=== PATIENT | male | born 1960 | race Hispanic/Latino ===

== ENCOUNTER 2021-03-03 07:20 | Day surgery (SDC) | payer MEDICARE ==
[~2021-03-03] VITALS: Ht 162.6 cm; Wt 77.1 kg
[2021-03-03] VITALS (7 sets, daily range): BP systolic 103–123; BP diastolic 47–58
[~2021-03-03 07:20] MED LIST: 0.9%NACL 1000ML 1,000 ML IV ONE
[2021-03-03] MEDS ORDERED: LINA5TAB PO (09:10)
[2021-03-03] MEDS ORDERED: ATOR40TA69 PO (09:10)
[2021-03-03] MEDS ORDERED: METO-408 PO (09:10)
[2021-03-03] MEDS ORDERED: ASPI-1443 PO (09:10)
[2021-03-03] MEDS ORDERED: FOLI0.8T22 PO (09:10)
[2021-03-03] MEDS ORDERED: AURYXIA PO (09:10)
[2021-03-03] MEDS ORDERED: CLOP75TA32 PO (09:10)
[2021-03-03] MEDS ORDERED: PROPOFOL 10 MG/ML 20ML VIAL IV ONE ×2 (10:55)
[2021-03-03] MEDS ORDERED: 0.9%NACL 10ML VIAL ONE (11:12)
== END 2021-03-03 12:08 | disposition home or self-care (01) ==
LOC: DAH 07:20 → ENDO 07:20
PROVIDERS: ATTEND Internal Medicine Gastroenterology
DX: R19.5 Other fecal abnormalities (principal); Z20.822 Contact with and (suspected) exposure to COVID-19; K52.9 Noninfective gastroenteritis and colitis, unspecified; K57.30 Diverticulosis of large intestine without perforation or abscess without bleeding; K64.0 First degree hemorrhoids; K63.3 Ulcer of intestine; E11.22 Type 2 diabetes mellitus with diabetic chronic kidney disease; I12.0 Hypertensive chronic kidney disease with stage 5 chronic kidney disease or end stage renal disease; N18.6 End stage renal disease; D64.9 Anemia, unspecified; I25.10 Atherosclerotic heart disease of native coronary artery without angina pectoris; Z99.2 Dependence on renal dialysis; Z98.84 Bariatric surgery status; Z98.49 Cataract extraction status, unspecified eye; Z95.5 Presence of coronary angioplasty implant and graft; Z79.02 Long term (current) use of antithrombotics/antiplatelets; Z79.82 Long term (current) use of aspirin; Z79.899 Other long term (current) drug therapy
CPT/HCPCS: 45380; 82948 ×3; 87426; 93005; A4215 ×2; A4221; A4222; A4223; A4606; A4620; A4657; A4663; J2704 ×2; J7030

== ENCOUNTER 2022-02-05 13:00 | Inpatient (IN) | payer MEDICARE ==
[~2022-02-05] VITALS: Ht 162.6 cm; Wt 88.0 kg
[2022-02-05 11:17] LABS: BASOPHILS % (AUTO) 0.8 % (0.0-5.0); EOSINOPHILS % (AUTO) 2.2 % (0.0-8.0); HEMATOCRIT 54.3 % (42-54); MEAN CORPUSCULAR HGB CONC 31.7 g/dL (32.0-36.0); MEAN CORPUSCULAR VOLUME 91.4 fL (79-99); MONOCYTES % (AUTO) 10.3 % (3.0-13.0); NEUTROPHILS % (AUTO) 67.4 % (40.0-77.0); PLATELET COUNT (AUTO) 149 K/uL (130-400); RED BLOOD CELL COUNT(AUTO) 5.94 MIL/uL (4.50-6.20); RED CELL DISTRIBUTION WIDTH 15.3 % (11.0-15.5); WHITE BLOOD COUNT (AUTO) 6.5 K/uL (4.8-10.8)
[2022-02-05 12:14] LABS: CREATININE 5.7 mg/dL (0.5-1.5); POTASSIUM 3.7 mmol/L (3.5-5.1)
[~2022-02-05 13:00] MED LIST changes: -0.9%NACL 1000ML 1,000 ML IV ONE; +ATOR40TA69 PO; +AURYXIA PO; +LINA5TAB PO; +METO-408 PO
[2022-02-05 13:26] VITALS: BP 109/51
[2022-02-05] MEDS ORDERED: CLOP75TA14 PO (14:14)
[2022-02-05] MEDS ORDERED: INSU100C6 SQ (14:14)
[2022-02-08] VITALS (38 sets, daily range): BP systolic 88–152; BP diastolic 40–79
[2022-02-08] MEDS ORDERED: 0.9%NACL 1000ML 1,000 ML IV SCH (08:00)
[2022-02-08] MEDS ORDERED: CEFAZOLIN SODIUM 1 GM VIAL IVP ONE (08:00)
[2022-02-08] MEDS ORDERED: BUPIVACAINE/PF 0.5% 30ML VIAL ONE (10:29)
[2022-02-08] MEDS ORDERED: CEFAZOLIN SODIUM 2 GM VIAL IV ONE (10:57)
[2022-02-08] MEDS ORDERED: MIDAZOLAM HCL 1 MG/ML 2ML VIAL ONE (11:00)
[2022-02-08] MEDS ORDERED: PROPOFOL 10 MG/ML 20ML VIAL IV ONE (11:02)
[2022-02-08] MEDS ORDERED: ROCURONIUM 10MG/1ML SYR 10 MG/ML ML ONE (11:02)
[2022-02-08] MEDS ORDERED: GLYCOPYRROLATE 1 MG/5 ML SYRINGE ONE (11:02)
[2022-02-08] MEDS ORDERED: FENTANYL CITRATE PF 50 MCG/1 ML 2ML VIAL ONE ×2 (11:26→13:04)
[2022-02-08] MEDS ORDERED: HYDROMORPHONE 1 MG INJ ONE (12:20)
[2022-02-08] MEDS ORDERED: NEOSTIGMINE 5MG/5ML SYR IV ONE (12:24)
[2022-02-08] MEDS ORDERED: ONDANSETRON 4MG INJ ONE (12:51)
[2022-02-08] MEDS ORDERED: ONDANSETRON 4MG INJ IVP PRN (15:00)
[2022-02-08] MEDS ORDERED: MORPHINE 4 MG SYG IVP PRN (15:00)
[2022-02-08] MEDS: LACTATED RINGERS 1000ML 1,000 ML IV SCH ×2 (15:00→23:00)
[2022-02-08] MEDS ORDERED: HYDROMORPHONE 0.5 MG SYG (0.5MG/0.5ML) IVP ONE (19:00)
[2022-02-08] MEDS ORDERED: HYDROMORPHONE 1 MG INJ IVP PRN (19:00)
[2022-02-08] MEDS: CEFAZOLIN SODIUM 1 GM VIAL IVP SCH (19:05)
[2022-02-08] MEDS: AURYXIA 210 MG PO SCH (20:31)
[2022-02-08] MEDS: ATORVASTATIN 40 MG TABLET PO SCH (20:31)
[2022-02-09] VITALS (7 sets, daily range): BP systolic 86–117; BP diastolic 32–68
[2022-02-09] MEDS: CEFAZOLIN SODIUM 1 GM VIAL IVP SCH ×3 (01:29→17:16)
[2022-02-09 05:17] LABS: HEMATOCRIT 35.7 % (42-54); MEAN CORPUSCULAR HEMOGLOBIN 29.5 pg (27.0-33.0); MEAN CORPUSCULAR HGB CONC 31.7 g/dL (32.0-36.0); MEAN CORPUSCULAR VOLUME 93.2 fL (79-99); PLATELET COUNT (AUTO) 133 K/uL (130-400); RED BLOOD CELL COUNT(AUTO) 3.83 MIL/uL (4.50-6.20); WHITE BLOOD COUNT (AUTO) 7.1 K/uL (4.8-10.8)
[2022-02-09 05:56] LABS: ALBUMIN 2.3 g/dL (3.5-5.0); CREATININE 7.1 mg/dL (0.5-1.5); PHOSPHORUS 6.1 mg/dL (2.5-4.9); POTASSIUM 4.7 mmol/L (3.5-5.1); TOTAL PROTEIN, SERUM 5.6 g/dL (6.0-8.3)
[2022-02-09] MEDS: LACTATED RINGERS 1000ML 1,000 ML IV SCH ×2 (07:00→15:00)
[2022-02-09 07:29] LABS: LYMPHOCYTES % (MANUAL) 8 % (22-44); MONOCYTES % (MANUAL) 9 % (2-9); SEGMENTED NEUTROPHILS % 83 % (40-70)
[2022-02-09 07:30] LABS: MAN.DIFF COMMENT-IMPRESSION MANUAL DIFFERENTIAL; PLATELET MORPHOLOGY COMMENT SLIGHTLY DECREASED
[2022-02-09] MEDS: AURYXIA 210 MG PO SCH ×2 (08:28→20:27)
[2022-02-09] MEDS: HYDROMORPHONE 0.5 MG SYG (0.5MG/0.5ML) IVP PRN ×2 (08:31→15:57)
[2022-02-09] MEDS: LINAGLIPTIN 5 MG TABLET PO SCH (08:31)
[2022-02-09] MEDS ORDERED: METOPROLOL SUCCINATE 25 MG TAB.SR.24H PO SCH (09:00)
[2022-02-09 12:43] LABS: MAGNESIUM 2.8 mg/dL (1.80-2.40)
[2022-02-09] MEDS: ATORVASTATIN 40 MG TABLET PO SCH (20:30)
[2022-02-09 21:10] LABS: HEPATITIS B SURFACE ANTIGEN Non-Reactive (Nonreactive)
[2022-02-09 21:11] LABS: HEPATITIS A IGM ANTIBODY Non-Reactive (Nonreactive); HEPATITIS B CORE IGM ANTIBODY Non-Reactive (Negative); HEPATITIS C ANTIBODY Non-Reactive (Nonreactive)
[2022-02-10] VITALS (23 sets, daily range): BP systolic 80–149; BP diastolic 32–90
[2022-02-10] MEDS: CEFAZOLIN SODIUM 1 GM VIAL IVP SCH ×3 (01:38→18:16)
[2022-02-10] MEDS: HYDROMORPHONE 0.5 MG SYG (0.5MG/0.5ML) IVP PRN (03:58)
[2022-02-10 04:25] LABS: HEMATOCRIT 36.2 % (42-54); MEAN CORPUSCULAR HEMOGLOBIN 29.6 pg (27.0-33.0); MEAN CORPUSCULAR HGB CONC 32.6 g/dL (32.0-36.0); PLATELET COUNT (AUTO) 140 K/uL (130-400); RED BLOOD CELL COUNT(AUTO) 3.98 MIL/uL (4.50-6.20); RED CELL DISTRIBUTION WIDTH 14.8 % (11.0-15.5)
[2022-02-10 04:43] LABS: ALBUMIN 2.6 g/dL (3.5-5.0); ASPARTATE AMINOTRANSFERASE 16 U/L (10-37); CARBON DIOXIDE 29 mmol/L (21-32); CHLORIDE 94 mmol/L (101-111); GLOMERULAR FILTR. RATE CALC 6 mL/min (>60); GLUCOSE,RANDOM 114 mg/dL (70-105); POTASSIUM 4.8 mmol/L (3.5-5.1); SODIUM SERUM 137 mmol/L (136-145); TOTAL PROTEIN, SERUM 6.7 g/dL (6.0-8.3); UREA NITROGEN, BLOOD 62 mg/dL (7-18)
[2022-02-10 05:08] LABS: BAND NEUTROPHILS % (MANUAL) 2 % (0-2); EOSINOPHILS % (MANUAL) 1 % (1-6); LYMPHOCYTES % (MANUAL) 10 % (22-44); MAN.DIFF COMMENT-IMPRESSION MANUAL DIFFERENTIAL; MONOCYTES % (MANUAL) 9 % (2-9); PLATELET MORPHOLOGY COMMENT ADEQUATE; SEGMENTED NEUTROPHILS % 78 % (40-70)
[2022-02-10 05:28] LABS: ALANINE AMINOTRANSFERASE < 6 U/L (12-78); CREATININE 10.1 mg/dL (0.5-1.5)
[2022-02-10] MEDS: AURYXIA 210 MG PO SCH ×2 (08:48→21:00)
[2022-02-10] MEDS: LINAGLIPTIN 5 MG TABLET PO SCH (08:57)
[2022-02-10] MEDS: SEVELAMER HCL 800 MG TABLET PO SCH (18:14)
[2022-02-10] MEDS ORDERED: 0.9% NACL 500ML IV.SOLN 500 ML IV ONE (20:26)
[2022-02-10] MEDS: ATORVASTATIN 40 MG TABLET PO SCH (20:28)
[2022-02-10] MEDS ORDERED: 0.9% NACL 500ML IV.SOLN 500 ML IV SCH (20:30)
[2022-02-10] MEDS: INSULIN HUMULIN R 100 UNIT/ML 3ML SQ SCH (21:00)
[2022-02-11] VITALS: BP 108/55
[2022-02-11] MEDS: CEFAZOLIN SODIUM 1 GM VIAL IVP SCH ×2 (02:55→11:32)
[2022-02-11 04:00] VITALS: BP 118/61
[2022-02-11 04:34] LABS: HEMATOCRIT 34.4 % (42-54); MEAN CORPUSCULAR HEMOGLOBIN 29.4 pg (27.0-33.0); MEAN CORPUSCULAR HGB CONC 32.6 g/dL (32.0-36.0); MEAN CORPUSCULAR VOLUME 90.3 fL (79-99); PLATELET COUNT (AUTO) 130 K/uL (130-400); RED BLOOD CELL COUNT(AUTO) 3.81 MIL/uL (4.50-6.20); RED CELL DISTRIBUTION WIDTH 14.5 % (11.0-15.5); WHITE BLOOD COUNT (AUTO) 5.8 K/uL (4.8-10.8)
[2022-02-11 04:53] LABS: CREATININE 7.8 mg/dL (0.5-1.5); PHOSPHORUS 6.2 mg/dL (2.5-4.9)
[2022-02-11 04:57] LABS: EOSINOPHILS % (MANUAL) 6 % (1-6); LYMPHOCYTES % (MANUAL) 18 % (22-44); MAN.DIFF COMMENT-IMPRESSION MANUAL DIFFERENTIAL; MONOCYTES % (MANUAL) 2 % (2-9); PLATELET MORPHOLOGY COMMENT ADEQUATE; SEGMENTED NEUTROPHILS % 74 % (40-70)
[2022-02-11] MEDS: INSULIN HUMULIN R 100 UNIT/ML 3ML SQ SCH ×2 (06:20→11:30)
[2022-02-11 08:00] VITALS: BP 141/65
[2022-02-11] MEDS: LINAGLIPTIN 5 MG TABLET PO SCH (08:53)
[2022-02-11] MEDS: AURYXIA 210 MG PO SCH (08:54)
[2022-02-11] MEDS: SEVELAMER HCL 800 MG TABLET PO SCH ×2 (08:54→11:33)
[2022-02-11] MEDS ORDERED: ASPIRIN 81MG CHEW TAB PO SCH (09:00)
[2022-02-11 11:23] VITALS: BP 122/74
== END 2022-02-11 13:15 | disposition home or self-care (01) | DRG 353 ==
LOC: DAHIP 02-08 08:17 → 4BH 02-08 13:39
PROVIDERS: ADMIT Surgery; ATTEND Surgery
PROC: 5A1D70Z Performance of Urinary Filtration, Intermittent, Less than 6 Hours Per Day (ICD-10-PCS; 2022-02-08)
PROC: 0WUF0JZ Supplement Abdominal Wall with Synthetic Substitute, Open Approach (ICD-10-PCS; principal; 2022-02-08 11:26)
PROC: 5A1D70Z Performance of Urinary Filtration, Intermittent, Less than 6 Hours Per Day (ICD-10-PCS; 2022-02-10)
DX: K43.2 Incisional hernia without obstruction or gangrene (principal); N18.6 End stage renal disease; I12.0 Hypertensive chronic kidney disease with stage 5 chronic kidney disease or end stage renal disease; Z20.822 Contact with and (suspected) exposure to COVID-19; E11.22 Type 2 diabetes mellitus with diabetic chronic kidney disease; E11.51 Type 2 diabetes mellitus with diabetic peripheral angiopathy without gangrene; E78.5 Hyperlipidemia, unspecified; E87.70 Fluid overload, unspecified; D64.9 Anemia, unspecified; I25.10 Atherosclerotic heart disease of native coronary artery without angina pectoris; K66.0 Peritoneal adhesions (postprocedural) (postinfection); Z87.891 Personal history of nicotine dependence; Z95.5 Presence of coronary angioplasty implant and graft; Z98.84 Bariatric surgery status; Z99.2 Dependence on renal dialysis
CPT/HCPCS: 36415; 80048; 80053; 80074; 82948; 83735; 84100; 84132; 85025; 87426; 90935; 97039; A4344; G0378; J0690; J1170; J2250; J2270; J2405; J2704; J2710; J3010; J3490; J7030; J7040; J7120

== ENCOUNTER 2023-12-07 19:59 | Inpatient (IN) | payer MEDICARE ==
[~2023-12-07] VITALS: Ht 162.6 cm; Wt 70.2 kg
[~2023-12-07 19:59] MED LIST changes: +INSU100C6 SQ; +ROCURONIUM BROMIDE 10MG/1ML 5ML VL IV ONE
[2023-12-07 20:30] LABS: BASOPHILS # (AUTO) 0.01 K/uL (0.00-0.20); BASOPHILS % (AUTO) 0.2 % (0.0-5.0); EOSINOPHILS # (AUTO) 0.05 K/uL (0.00-0.70); EOSINOPHILS % (AUTO) 0.9 % (0.0-8.0); HEMATOCRIT 22.7 % (42-54); IMMATURE GRANULOCYTE ABSOLUTE 0.09 K/uL (0-1); LYMPHOCYTES # (AUTO) 0.7 K/uL (1.0-4.8); LYMPHOCYTES % (AUTO) 13.7 % (21.0-51.0); MEAN CORPUSCULAR HEMOGLOBIN 28.7 pg (27.0-33.0); MEAN CORPUSCULAR HGB CONC 30.8 g/dL (32.0-36.0); MONOCYTES # (AUTO) 0.5 K/uL (0.1-1.0); MONOCYTES % (AUTO) 9.2 % (3.0-13.0); NEUTROPHILS % (AUTO) 74.3 % (40.0-77.0); PLATELET COUNT (AUTO) 175 K/uL (130-400); RED BLOOD CELL COUNT(AUTO) 2.44 MIL/uL (4.50-6.20); RED CELL DISTRIBUTION WIDTH 13.9 % (11.0-15.5); WHITE BLOOD COUNT (AUTO) 5.4 K/uL (4.8-10.8)
[2023-12-07] MEDS ORDERED: CEFTRIAXONE 1G VIAL 1 GM in 0.9%NACL 50ML 50 ML IV ONE (20:30)
[2023-12-07] MEDS: ONDANSETRON 4MG INJ IVP ONE (20:36)
[2023-12-07] MEDS: PANTOPRAZOLE 40 MG/VIAL IVP ONE (20:36)
[2023-12-07] MEDS: CEFTRIAXONE 1G VIAL IVPB ONE (20:36)
[2023-12-07 20:44] LABS: INR 1.04 (0.85-1.15); PROTHROMBIN TIME 12.2 SEC (9.6-11.6)
[2023-12-07 20:45] LABS: ALBUMIN 2.8 g/dL (3.5-5.0); BILIRUBIN,TOTAL 0.3 mg/dL (0.2-1.0); PARTIAL THROMBOPLASTIN TIME 23.3 SEC (26.3-35.5); TOTAL PROTEIN, SERUM 5.4 g/dL (6.0-8.3)
[2023-12-07 20:48] LABS: POTASSIUM 6.5 mmol/L (3.5-5.1)
[2023-12-07] MEDS: INSULIN HUMULIN R 100 UNIT/ML 3ML IV ONE (21:00)
[2023-12-07] MEDS: CALCIUM GLUC 1GM 1 GM in 0.9%NACL 100ML 100 ML IV ONE (21:06)
[2023-12-07] MEDS: DEXTROSE 50%-WATER 50 ML DISP.SYRIN IV ONE (21:06)
[2023-12-07] MEDS: DEXTROSE 50%-WATER 25 GM/50 ML VIAL IV ONE (21:07)
[2023-12-07] MEDS: NOREPINEPHRIN 4MG/NS 250ML 250 ML IV ONE ×3 (21:10→22:30)
[2023-12-07 21:19] VITALS: PULSE 105; RESP 20
[2023-12-07] MEDS: ALBUTEROL 0.083% 2.5 MG/3 ML INH IH SCH (21:19)
[2023-12-07 21:25] LABS: ABG OXYGEN SATURATION 44.8 % (95.0-99.0); BASE EXCESS,VENOUS BLOOD GAS -18.9 (-2.0-3.0); HCO3,VENOUS BLOOD GAS 8.8 (21.0-28.0); PCO2,VENOUS BLOOD GAS 28 (32-45); PH,VENOUS BLOOD GAS 7.114 (7.350-7.450); PO2,VENOUS BLOOD GAS 34.2 mmHg (35.0-45.0); VENT MODE, BG NC (ROOM AIR)
[2023-12-07] MEDS: 0.9%NACL 1000ML 1,000 ML IV SCH (21:30)
[2023-12-07] MEDS ORDERED: GUAIFENESIN-DM 200/20 MG 10 ML PO PRN (21:30)
[2023-12-07] MEDS ORDERED: MAGNESIUM 2GM PREMIX 50ML 50 ML IV PRN (21:30)
[2023-12-07] MEDS ORDERED: IBUPROFEN 600 MG TABLET PO PRN (21:30)
[2023-12-07] MEDS ORDERED: DiphenhydrAMINE HCL 50 MG/ML VIAL IV PRN (21:30)
[2023-12-07] MEDS ORDERED: ZOLPIDEM TARTRATE 5 MG TAB PO PRN (21:30)
[2023-12-07] MEDS ORDERED: TRAMADOL HCL 50 MG TABLET PO PRN (21:30)
[2023-12-07] MEDS ORDERED: NITROGLYCERIN 0.4 MG SL TAB SL PRN (21:30)
[2023-12-07] MEDS ORDERED: MAG/ALUM/SIMETH 30 ML UDCUP PO PRN (21:30)
[2023-12-07] MEDS ORDERED: ONDANSETRON 4MG INJ IV PRN (21:30)
[2023-12-07] MEDS ORDERED: HYDRALAZINE 20MG/ML VIAL IV PRN (21:30)
[2023-12-07] MEDS ORDERED: FAMOTIDINE 20MG VIAL IV PRN (21:30)
[2023-12-07] MEDS ORDERED: IBUPROFEN 400 MG TABLET PO PRN (21:30)
[2023-12-07] MEDS ORDERED: ACETAMINOPHEN 325 MG TAB PO PRN ×2 (21:30)
[2023-12-07] MEDS ORDERED: LACTULOSE 20 GM/30 ML UDCUP PO PRN (21:30)
[2023-12-07] MEDS: VASOPRESSIN 20 UNITS/ML 1ML VIAL ONE (21:43)
[2023-12-07 22:22] VITALS: PULSE 85; O2SAT 95
[2023-12-07] MEDS ORDERED: MIDAZOLAM HCL 50 MG in 0.9%NACL 50ML 50 ML IV SCH (22:30)
[2023-12-07 23:20] LABS: BASOPHILS # (AUTO) 0.03 K/uL (0.00-0.20); BASOPHILS % (AUTO) 0.3 % (0.0-5.0); EOSINOPHILS # (AUTO) 0.05 K/uL (0.00-0.70); EOSINOPHILS % (AUTO) 0.4 % (0.0-8.0); HEMATOCRIT 31.7 % (42-54); IMMATURE GRANULOCYTE ABSOLUTE 0.53 K/uL (0-1); LYMPHOCYTES # (AUTO) 1.6 K/uL (1.0-4.8); LYMPHOCYTES % (AUTO) 14.1 % (21.0-51.0); MEAN CORPUSCULAR HEMOGLOBIN 28.4 pg (27.0-33.0); MEAN CORPUSCULAR VOLUME 94.9 fL (79-99); MONOCYTES # (AUTO) 0.6 K/uL (0.1-1.0); MONOCYTES % (AUTO) 5.6 % (3.0-13.0); NEUTROPHILS # (AUTO) 8.4 K/uL (1.8-7.7); NEUTROPHILS % (AUTO) 74.8 % (40.0-77.0); PLATELET COUNT (AUTO) 193 K/uL (130-400); RED BLOOD CELL COUNT(AUTO) 3.34 MIL/uL (4.50-6.20); RED CELL DISTRIBUTION WIDTH 15.1 % (11.0-15.5); WHITE BLOOD COUNT (AUTO) 11.2 K/uL (4.8-10.8)
[2023-12-08] VITALS (109 sets, daily range): BP systolic 84–150; BP diastolic 32–116; PULSE 60–110; RESP 4–87; TEMP 99.2–100.1; O2SAT 94–100
[2023-12-08] MEDS: FENTANYL 1000MCG+NS 100ML 100 ML IV ONE (01:05)
[2023-12-08] MEDS: NOREPINEPHRIN 4MG/NS 250ML 250 ML IV ONE (01:08)
[2023-12-08] MEDS: NOREPINEPHRINE 16MG/NS 250ML 250 ML IV ONE (01:10)
[2023-12-08] MEDS: PANTOPRAZOLE 40MG INJ 80 MG in 0.9%NACL 100ML 100 ML IV SCH ×2 (01:11→08:33)
[2023-12-08 01:12] LABS: ABG BASE EXCESS -19.9 mmol/L (-2.0-3.0); ABG HCO3 11.6 mmol/L (21.0-28.0); ABG OXYGEN SATURATION 99.1 % (95.0-99.0); ABG PCO2 53 mmHg (35-48); ABG PH 6.959 (7.35-7.450); CARBON MONOXIDE 0.3; HHb 0.9; PO2, ARTERIAL BG 389.3 mmHg (83.0-108.0); VENT MODE, BG ACVC (ROOM AIR)
[2023-12-08] MEDS: OCTREOTIDE ACETATE 1,250 MCG in 0.9% NACL 250ML 250 ML IV SCH (01:12)
[2023-12-08] MEDS: VASOPRESSIN 20 UNITS in 0.9%NACL 100ML 100 ML IV SCH (01:16)
[2023-12-08] MEDS: MIDAZOLAM 50MG-0.9% NS 50ML 50 ML IV SCH (01:22)
[2023-12-08] MEDS: SODIUM BICARB 50MEQ 50ML VIAL 200 ML ONE (02:07)
[2023-12-08] MEDS: SODIUM BICARB 50MEQ 50ML VIAL IV ONE ×2 (02:07→05:10)
[2023-12-08] MEDS: CALCIUM GLUC 1GM/10ML VIAL IV ONE ×2 (02:13→05:11)
[2023-12-08] MEDS: DEXTROSE 50%-WATER 50 ML DISP.SYRIN IV ONE ×2 (02:14→05:12)
[2023-12-08] MEDS: FUROSEMIDE 40MG VIAL IV ONE ×2 (02:14→05:11)
[2023-12-08] MEDS: INSULIN HUMULIN R 100 UNIT/ML 3ML IV ONE ×2 (02:23→05:14)
[2023-12-08] MEDS: ALBUTEROL 0.083% 2.5 MG/3 ML INH IH ONE ×2 (02:30→05:11)
[2023-12-08] MEDS: FENTANYL 2500MCG+NS 250ML 250 ML IV SCH (02:40)
[2023-12-08] MEDS: SODIUM BICARB 8.4% 50ML SYRING 150 MEQ in DEXTROSE 5%-WATER 1,000 ML IV SCH (02:54)
[2023-12-08 03:59] LABS: BASOPHILS # (AUTO) 0.04 K/uL (0.00-0.20); BASOPHILS % (AUTO) 0.2 % (0.0-5.0); EOSINOPHILS # (AUTO) 0.01 K/uL (0.00-0.70); IMMATURE GRANULOCYTE ABSOLUTE 0.85 K/uL (0-1); LYMPHOCYTES # (AUTO) 0.6 K/uL (1.0-4.8); LYMPHOCYTES % (AUTO) 3.1 % (21.0-51.0); MEAN CORPUSCULAR HEMOGLOBIN 28.4 pg (27.0-33.0); MEAN CORPUSCULAR VOLUME 91.7 fL (79-99); MONOCYTES # (AUTO) 3.1 K/uL (0.1-1.0); MONOCYTES % (AUTO) 15.2 % (3.0-13.0); NEUTROPHILS # (AUTO) 15.7 K/uL (1.8-7.7); NEUTROPHILS % (AUTO) 77.3 % (40.0-77.0); PLATELET COUNT (AUTO) 207 K/uL (130-400); RED BLOOD CELL COUNT(AUTO) 3.27 MIL/uL (4.50-6.20); RED CELL DISTRIBUTION WIDTH 15.6 % (11.0-15.5); WHITE BLOOD COUNT (AUTO) 20.3 K/uL (4.8-10.8)
[2023-12-08 04:11] LABS: ABG BASE EXCESS -9.5 mmol/L (-2.0-3.0); ABG HCO3 17.3 mmol/L (21.0-28.0); ABG OXYGEN SATURATION 97.7 % (95.0-99.0); ABG PCO2 42 mmHg (35-48); ABG PH 7.237 (7.35-7.450); CARBON MONOXIDE 0.3; HHb 2.3; VENT MODE, BG AC (ROOM AIR)
[2023-12-08 04:21] LABS: ABG BASE EXCESS -10.1 mmol/L (-2.0-3.0); ABG HCO3 16.6 mmol/L (21.0-28.0); ABG OXYGEN SATURATION 98.2 % (95.0-99.0); ABG PCO2 40 mmHg (35-48); ABG PH 7.238 (7.35-7.450); CARBON MONOXIDE 0.3; HHb 1.8; PO2, ARTERIAL BG 142.1 mmHg (83.0-108.0); VENT MODE, BG AC (ROOM AIR)
[2023-12-08 04:39] LABS: HEMOGLOBIN A1C 6.5 % (4.0-6.0)
[2023-12-08 05:05] LABS: ALBUMIN 2.8 g/dL (3.5-5.0); BILIRUBIN,DIRECT 0.1 mg/dL (0.0-0.3); BILIRUBIN,TOTAL 0.4 mg/dL (0.2-1.0); CREATININE 2.5 mg/dL (0.5-1.3); MAGNESIUM 2.4 mg/dL (1.80-2.40); TOTAL PROTEIN, SERUM 5.6 g/dL (6.0-8.3)
[2023-12-08 05:07] LABS: POTASSIUM 6.4 mmol/L (3.5-5.1)
[2023-12-08 06:30] LABS: CHLORIDE,URINE RANDOM 35 mmol/L (110-250); CREATININE,URINE RANDOM 94.72 mg/dL (30-135); POTASSIUM,URINE RANDOM 54 mmol/L (25-125); SODIUM,URINE RANDOM 35 mmol/l (40-220)
[2023-12-08] MEDS ORDERED: VANCOMYCIN PROTOCOL PER PHARMACY IV SCH (06:30)
[2023-12-08 06:33] LABS: APPEARANCE,URINE CLOUDY (CLEAR); BILIRUBIN,URINE NEGATIVE (NEGATIVE); COLOR,URINE YELLOW (YELLOW); GLUCOSE, URINE (UA) 70 mg/dL (NEGATIVE); KETONES,URINE NEGATIVE (NEGATIVE); LEUKOCYTE ESTERASE ,URINE 75 Leu/uL (NEGATIVE); NITRATE,URINE NEGATIVE (NEGATIVE); OCCULT BLOOD,URINE LARGE (NEGATIVE); PH,URINE 5.5 (5.0-8.0); PROTEIN,URINE 100 mg/dL (NEGATIVE); UROBILINOGEN,URINE 0.2 mg/dL (0.2-1.0)
[2023-12-08 06:34] LABS: ADD UA MICROSCOPIC YES
[2023-12-08 06:38] LABS: BACTERIA,URINE RARE /HPF (None Seen); MUCUS,URINE RARE LPF (None Seen); RBC,URINE TNTC /HPF (0-1); SQUAMOUS EPITHELIAL CELL,UR FEW /HPF (0-2); WBC CLUMP RARE /HPF (0-1)
[2023-12-08] MEDS: CEFEPIME HCL 2 GM VIAL IVPB SCH (06:39)
[2023-12-08 07:08] LABS: COVID19 (SARS ANTIGEN RAPID) PRESUMPTIVE NEGATIVE (NEGATIVE); INFLUENZA TYPE A Negative For Type A (NEGATIVE); INFLUENZA TYPE B Negative For Type B (NEGATIVE)
[2023-12-08] MEDS: NOREPINEPHRINE 16MG/NS 250ML PREMIX IV SCH (07:25)
[2023-12-08] MEDS: METOPROLOL SUCCINATE 25 MG TAB.SR.24H PO SCH (08:33)
[2023-12-08] MEDS: VANCOMYCIN 1.25 GM/250 ML IV ONE (08:34)
[2023-12-08] MEDS: INSULIN HUMULIN R 100 UNIT/ML 3ML SQ SCH ×2 (08:42→12:45)
[2023-12-08] MEDS: 0.9% NACL 500ML IV.SOLN 500 ML IV SCH ×2 (08:45→18:00)
[2023-12-08] MEDS ORDERED: ASPI-1443 PO (08:53)
[2023-12-08] MEDS ORDERED: MYCO250C36 PO (08:53)
[2023-12-08] MEDS ORDERED: ATOR20TA65 PO (08:53)
[2023-12-08] MEDS ORDERED: ICOS1CAP PO (08:53)
[2023-12-08] MEDS ORDERED: BUME2TAB5 PO (08:53)
[2023-12-08] MEDS ORDERED: TACR1CAP10 PO (08:53)
[2023-12-08] MEDS ORDERED: CLOP75TA32 PO (08:53)
[2023-12-08] MEDS ORDERED: MIDO10TA PO (08:53)
[2023-12-08] MEDS ORDERED: SUCR1TAB2 PO (08:53)
[2023-12-08] MEDS ORDERED: TACR1GRA PO (08:53)
[2023-12-08] MEDS ORDERED: LOSA25TA41 PO (08:53)
[2023-12-08] MEDS ORDERED: GLUCAGON 1MG KIT 1 MG ML IM PRN (10:00)
[2023-12-08] MEDS ORDERED: IPRATROPIUM/ALBUTEROL SULFATE 3 ML SOLUTION IH PRN (10:00)
[2023-12-08 10:05] LABS: BASOPHILS # (AUTO) 0.06 K/uL (0.00-0.20); BASOPHILS % (AUTO) 0.4 % (0.0-5.0); HEMATOCRIT 31.4 % (42-54); IMMATURE GRANULOCYTE ABSOLUTE 0.46 K/uL (0-1); LYMPHOCYTES % (AUTO) 5.8 % (21.0-51.0); MEAN CORPUSCULAR HEMOGLOBIN 28.4 pg (27.0-33.0); MEAN CORPUSCULAR HGB CONC 30.9 g/dL (32.0-36.0); MEAN CORPUSCULAR VOLUME 91.8 fL (79-99); MONOCYTES % (AUTO) 12.3 % (3.0-13.0); NEUTROPHILS # (AUTO) 13.1 K/uL (1.8-7.7); NEUTROPHILS % (AUTO) 78.7 % (40.0-77.0); PLATELET COUNT (AUTO) 215 K/uL (130-400); RED BLOOD CELL COUNT(AUTO) 3.42 MIL/uL (4.50-6.20); RED CELL DISTRIBUTION WIDTH 16.5 % (11.0-15.5); WHITE BLOOD COUNT (AUTO) 16.6 K/uL (4.8-10.8)
[2023-12-08 10:08] LABS: ABG BASE EXCESS -8.1 mmol/L (-2.0-3.0); ABG HCO3 17.5 mmol/L (21.0-28.0); ABG OXYGEN SATURATION 98.1 % (95.0-99.0); ABG PCO2 36 mmHg (35-48); ABG PH 7.305 (7.35-7.450); CARBON MONOXIDE 0.3; DEVICE COMMENT SYLVIA RN; HHb 1.9; PO2, ARTERIAL BG 135.7 mmHg (83.0-108.0); VENT MODE, BG AC (ROOM AIR)
[2023-12-08 10:09] LABS: CREATININE 2.8 mg/dL (0.5-1.3)
[2023-12-08 10:12] LABS: POTASSIUM 6.3 mmol/L (3.5-5.1)
[2023-12-08] MEDS: METRONIDAZOLE 500MG/100ML BAG IVPB SCH (10:16)
[2023-12-08] MEDS: CHLORHEXIDINE GLUCONATE 15 ML MOUTHWASH MM SCH (10:16)
[2023-12-08] MEDS ORDERED: LACTATED RINGERS 1000ML IV SCH (10:30)
[2023-12-08] MEDS ORDERED: COMPOUND IV REFRIGERATED 1 EACH IVSOLN MISC PRN (11:30)
[2023-12-08] MEDS ORDERED: COMPOUND IV MISC 1 EACH IVSOLN MISC PRN (11:30)
[2023-12-08 13:34] LABS: CREATININE 2.9 mg/dL (0.5-1.3)
[2023-12-08 13:36] LABS: POTASSIUM 6.9 mmol/L (3.5-5.1)
[2023-12-08 17:42] LABS: BASOPHILS # (AUTO) 0.08 K/uL (0.00-0.20); BASOPHILS % (AUTO) 0.6 % (0.0-5.0); EOSINOPHILS # (AUTO) 0.03 K/uL (0.00-0.70); EOSINOPHILS % (AUTO) 0.2 % (0.0-8.0); HEMATOCRIT 27.3 % (42-54); IMMATURE GRANULOCYTE ABSOLUTE 0.43 K/uL (0-1); LYMPHOCYTES # (AUTO) 0.9 K/uL (1.0-4.8); LYMPHOCYTES % (AUTO) 7.1 % (21.0-51.0); MEAN CORPUSCULAR HEMOGLOBIN 28.6 pg (27.0-33.0); MEAN CORPUSCULAR HGB CONC 32.2 g/dL (32.0-36.0); MEAN CORPUSCULAR VOLUME 88.6 fL (79-99); MONOCYTES # (AUTO) 1.5 K/uL (0.1-1.0); MONOCYTES % (AUTO) 11.1 % (3.0-13.0); NEUTROPHILS # (AUTO) 10.1 K/uL (1.8-7.7); NEUTROPHILS % (AUTO) 77.7 % (40.0-77.0); PLATELET COUNT (AUTO) 180 K/uL (130-400); RED BLOOD CELL COUNT(AUTO) 3.08 MIL/uL (4.50-6.20); RED CELL DISTRIBUTION WIDTH 16.8 % (11.0-15.5); WHITE BLOOD COUNT (AUTO) 13.1 K/uL (4.8-10.8)
[2023-12-08 17:52] LABS: CREATININE 2.9 mg/dL (0.5-1.3)
[2023-12-08 18:04] LABS: POTASSIUM 6.1 mmol/L (3.5-5.1)
[2023-12-08] MEDS: SODIUM ZIRCONIUM CYCLOSILICATE 5 GM POWD.PACK PO SCH (18:12)
[2023-12-08] MEDS: CALCIUM GLUC 1GM 1 GM in 0.9%NACL 100ML 100 ML IV SCH (18:12)
[2023-12-08] MEDS: DEXTROSE 50%-WATER 50 ML DISP.SYRIN IV SCH (18:13)
[2023-12-08] MEDS: INSULIN HUMULIN R 100 UNIT/ML 3ML IV SCH (18:16)
[2023-12-08] MEDS ORDERED: 0.9% NACL 500ML IV.SOLN 500 ML IV SCH (19:00)
[2023-12-08 19:51] LABS: HEMATOCRIT 26.1 % (42-54)
[2023-12-08 20:01] LABS: ALBUMIN 2.5 g/dL (3.5-5.0); CREATININE 2.9 mg/dL (0.5-1.3)
[2023-12-08 20:18] LABS: % IRON SATURATION 4.9 % (30-44)
[2023-12-08 20:36] LABS: HIV 1&2 ANTIBODY Non-Reactive (Negative); HIV-1 p24 Antigen Non-Reactive (Negative)
[2023-12-08] MEDS: LACTULOSE 20 GM/30 ML UDCUP PO SCH (21:00)
[2023-12-08] MEDS: ATORVASTATIN 40 MG TABLET PO SCH (21:00)
[2023-12-08 21:56] LABS: BASOPHILS # (AUTO) 0.05 K/uL (0.00-0.20); BASOPHILS % (AUTO) 0.4 % (0.0-5.0); EOSINOPHILS # (AUTO) 0.06 K/uL (0.00-0.70); EOSINOPHILS % (AUTO) 0.5 % (0.0-8.0); HEMATOCRIT 25.8 % (42-54); IMMATURE GRANULOCYTE ABSOLUTE 0.44 K/uL (0-1); LYMPHOCYTES # (AUTO) 0.8 K/uL (1.0-4.8); LYMPHOCYTES % (AUTO) 5.9 % (21.0-51.0); MEAN CORPUSCULAR HEMOGLOBIN 28.7 pg (27.0-33.0); MEAN CORPUSCULAR HGB CONC 32.2 g/dL (32.0-36.0); MEAN CORPUSCULAR VOLUME 89.3 fL (79-99); MONOCYTES # (AUTO) 1.1 K/uL (0.1-1.0); MONOCYTES % (AUTO) 7.9 % (3.0-13.0); NEUTROPHILS # (AUTO) 10.9 K/uL (1.8-7.7); PLATELET COUNT (AUTO) 132 K/uL (130-400); RED BLOOD CELL COUNT(AUTO) 2.89 MIL/uL (4.50-6.20); RED CELL DISTRIBUTION WIDTH 16.6 % (11.0-15.5); WHITE BLOOD COUNT (AUTO) 13.3 K/uL (4.8-10.8)
[2023-12-08 22:39] LABS: CREATININE 0.5 mg/dL (0.5-1.3)
[2023-12-09] VITALS (115 sets, daily range): BP systolic 89–141; BP diastolic 47–87; PULSE 80–108; RESP 13–115; TEMP 98.2–99.6; O2SAT 92–100
[2023-12-09 02:32] LABS: BASOPHILS # (AUTO) 0.04 K/uL (0.00-0.20); BASOPHILS % (AUTO) 0.3 % (0.0-5.0); EOSINOPHILS # (AUTO) 0.04 K/uL (0.00-0.70); EOSINOPHILS % (AUTO) 0.3 % (0.0-8.0); HEMATOCRIT 28.2 % (42-54); IMMATURE GRANULOCYTE ABSOLUTE 0.43 K/uL (0-1); LYMPHOCYTES # (AUTO) 0.6 K/uL (1.0-4.8); LYMPHOCYTES % (AUTO) 3.6 % (21.0-51.0); MEAN CORPUSCULAR HEMOGLOBIN 28.6 pg (27.0-33.0); MEAN CORPUSCULAR HGB CONC 32.6 g/dL (32.0-36.0); MEAN CORPUSCULAR VOLUME 87.6 fL (79-99); MONOCYTES # (AUTO) 1.7 K/uL (0.1-1.0); MONOCYTES % (AUTO) 10.8 % (3.0-13.0); NEUTROPHILS # (AUTO) 12.7 K/uL (1.8-7.7); NEUTROPHILS % (AUTO) 82.2 % (40.0-77.0); PLATELET COUNT (AUTO) 156 K/uL (130-400); RED BLOOD CELL COUNT(AUTO) 3.22 MIL/uL (4.50-6.20); RED CELL DISTRIBUTION WIDTH 16.9 % (11.0-15.5); WHITE BLOOD COUNT (AUTO) 15.4 K/uL (4.8-10.8)
[2023-12-09 03:04] LABS: CREATININE 2.5 mg/dL (0.5-1.3); MAGNESIUM 1.9 mg/dL (1.80-2.40); PHOSPHORUS 4.3 mg/dL (2.5-4.9); POTASSIUM 4.3 mmol/L (3.5-5.1); THYROID STIMULATING HORMONE 0.14 uIU/mL (0.36-3.74)
[2023-12-09] MEDS: DEXTROSE 50%-WATER 50 ML DISP.SYRIN IV ONE (03:10)
[2023-12-09] MEDS ORDERED: DEXTROSE 50%-WATER 50 ML DISP.SYRIN IV PRN (03:30)
[2023-12-09] MEDS: DEXTROSE 10%-WATER 1,000 ML IV SCH (04:00)
[2023-12-09 07:02] LABS: BASOPHILS # (AUTO) 0.04 K/uL (0.00-0.20); BASOPHILS % (AUTO) 0.2 % (0.0-5.0); EOSINOPHILS # (AUTO) 0.01 K/uL (0.00-0.70); EOSINOPHILS % (AUTO) 0.1 % (0.0-8.0); HEMATOCRIT 27.4 % (42-54); IMMATURE GRANULOCYTE ABSOLUTE 0.66 K/uL (0-1); LYMPHOCYTES # (AUTO) 0.5 K/uL (1.0-4.8); LYMPHOCYTES % (AUTO) 2.8 % (21.0-51.0); MEAN CORPUSCULAR HEMOGLOBIN 28.4 pg (27.0-33.0); MEAN CORPUSCULAR HGB CONC 31.8 g/dL (32.0-36.0); MEAN CORPUSCULAR VOLUME 89.5 fL (79-99); MONOCYTES # (AUTO) 1.5 K/uL (0.1-1.0); MONOCYTES % (AUTO) 9.2 % (3.0-13.0); NEUTROPHILS # (AUTO) 13.7 K/uL (1.8-7.7); NEUTROPHILS % (AUTO) 83.7 % (40.0-77.0); PLATELET COUNT (AUTO) 145 K/uL (130-400); RED BLOOD CELL COUNT(AUTO) 3.06 MIL/uL (4.50-6.20); RED CELL DISTRIBUTION WIDTH 17.1 % (11.0-15.5); WHITE BLOOD COUNT (AUTO) 16.3 K/uL (4.8-10.8)
[2023-12-09 07:13] LABS: CREATININE 2.6 mg/dL (0.5-1.3); POTASSIUM 5.4 mmol/L (3.5-5.1)
[2023-12-09] MEDS: VANCOMYCIN 750MG VIAL IVPB SCH (08:06)
[2023-12-09] MEDS: POLYETHYLENE GLYCOL 3350 17 GM POWD.PACK PO SCH (08:06)
[2023-12-09] MEDS: DEXMEDETOMIDINE 400MCG/NS100ML IV SCH (08:52)
[2023-12-09 09:08] LABS: ABG BASE EXCESS -1.3 mmol/L (-2.0-3.0); ABG HCO3 23.6 mmol/L (21.0-28.0); ABG OXYGEN SATURATION 98.6 % (95.0-99.0); ABG PCO2 41 mmHg (35-48); ABG PH 7.382 (7.35-7.450); CARBON MONOXIDE 0.3; DEVICE COMMENT RAQUEL RN AL; HHb 1.4; PO2, ARTERIAL BG 165.3 mmHg (83.0-108.0); VENT MODE, BG AC (ROOM AIR)
[2023-12-09] MEDS: EPOETIN ALFA-EPBX (NON-ESRD) 10,000 UNIT/ML VIAL SQ SCH (13:24)
[2023-12-09 13:58] LABS: CREATININE 2.2 mg/dL (0.5-1.3); POTASSIUM 4.9 mmol/L (3.5-5.1)
[2023-12-09 19:46] LABS: CREATININE 2.4 mg/dL (0.5-1.3); POTASSIUM 5.3 mmol/L (3.5-5.1)
[2023-12-09 20:10] LABS: HEMOGLOBIN A1C 6.3 % (4.0-6.0)
[2023-12-09] MEDS: TACROLIMUS 1 MG CAPSULE PO SCH (21:17)
[2023-12-09] MEDS: LINEZOLID 600 MG/ISO-OSM 300 ML IV SCH (21:19)
[2023-12-09] MEDS: INSULIN HUMULIN R 100 UNIT/ML 3ML SQ SCH (21:19)
[2023-12-10] VITALS (56 sets, daily range): BP systolic 89–157; BP diastolic 4–136; PULSE 79–100; RESP 16–134; TEMP 98.5–98.7; O2SAT 100
[2023-12-10] MEDS ORDERED: POTASSIUM CHLORIDE 10MEQ/100ML 100 ML IV PRN ×2 (02:00)
[2023-12-10] MEDS ORDERED: POTASSIUM CHLORIDE 10% ELIXIR 20 MEQ/15 ML UDCUP PO PRN (02:00)
[2023-12-10] MEDS ORDERED: KCL 20 MEQ ERTAB PO PRN (02:00)
[2023-12-10 02:48] LABS: HEMATOCRIT 25.5 % (42-54); MEAN CORPUSCULAR HEMOGLOBIN 28.7 pg (27.0-33.0); MEAN CORPUSCULAR HGB CONC 32.2 g/dL (32.0-36.0); MEAN CORPUSCULAR VOLUME 89.2 fL (79-99); RED BLOOD CELL COUNT(AUTO) 2.86 MIL/uL (4.50-6.20); WHITE BLOOD COUNT (AUTO) 12.1 K/uL (4.8-10.8)
[2023-12-10 02:57] LABS: CREATININE 2.6 mg/dL (0.5-1.3); POTASSIUM 5.2 mmol/L (3.5-5.1)
[2023-12-10 03:01] LABS: INR 1.14 (0.85-1.15); PROTHROMBIN TIME 13.3 SEC (9.6-11.6)
[2023-12-10 06:35] LABS: BASOPHILS # (AUTO) 0.04 K/uL (0.00-0.20); BASOPHILS % (AUTO) 0.4 % (0.0-5.0); EOSINOPHILS # (AUTO) 0.04 K/uL (0.00-0.70); EOSINOPHILS % (AUTO) 0.4 % (0.0-8.0); HEMATOCRIT 25.2 % (42-54); IMMATURE GRANULOCYTE ABSOLUTE 0.33 K/uL (0-1); LYMPHOCYTES # (AUTO) 0.4 K/uL (1.0-4.8); LYMPHOCYTES % (AUTO) 3.4 % (21.0-51.0); MEAN CORPUSCULAR HEMOGLOBIN 28.9 pg (27.0-33.0); MEAN CORPUSCULAR HGB CONC 32.5 g/dL (32.0-36.0); MEAN CORPUSCULAR VOLUME 88.7 fL (79-99); MONOCYTES # (AUTO) 0.9 K/uL (0.1-1.0); MONOCYTES % (AUTO) 8.2 % (3.0-13.0); NEUTROPHILS # (AUTO) 9.5 K/uL (1.8-7.7); NEUTROPHILS % (AUTO) 84.6 % (40.0-77.0); PLATELET COUNT (AUTO) 152 K/uL (130-400); RED BLOOD CELL COUNT(AUTO) 2.84 MIL/uL (4.50-6.20); RED CELL DISTRIBUTION WIDTH 15.9 % (11.0-15.5); WHITE BLOOD COUNT (AUTO) 11.2 K/uL (4.8-10.8)
[2023-12-10 07:02] LABS: ALBUMIN 2.3 g/dL (3.5-5.0); BILIRUBIN,TOTAL 0.7 mg/dL (0.2-1.0); CREATININE 2.6 mg/dL (0.5-1.3); MAGNESIUM 1.7 mg/dL (1.80-2.40); PHOSPHORUS 5.3 mg/dL (2.5-4.9); POTASSIUM 5.2 mmol/L (3.5-5.1); TOTAL PROTEIN, SERUM 5.4 g/dL (6.0-8.3); VANCOMYCIN TROUGH 9.3 UG/ML (10.0-20.0)
[2023-12-10] MEDS: MIDODRINE HCL 5 MG TABLET PO SCH (08:13)
[2023-12-10] MEDS: TACROLIMUS 1 MG CAPSULE PO SCH (08:13)
[2023-12-10] MEDS: EPOETIN ALFA-EPBX (NON-ESRD) 10,000 UNIT/ML VIAL SQ SCH (13:04)
[2023-12-10] MEDS: IRON SUCROSE COMPLEX 300 MG in 0.9% NACL 250ML 250 ML IV SCH (13:34)
[2023-12-13 05:14] LABS: HEPATITIS Bs ANTIGEN SCREEN P Negative (Negative)
== END 2023-12-10 14:52 | disposition short-term general hospital (02) | DRG 871 ==
LOC: EDH 19:59 → EDHIP 21:09 → 2CV 21:40 → 2BH 12-08 → 4BH 12-10 10:30 → 2BH 12-10 10:58
PROVIDERS: ADMIT Hospitalist; ATTEND Hospitalist
PROC: 5A1945Z Respiratory Ventilation, 24-96 Consecutive Hours (ICD-10-PCS; principal; 2023-12-07)
PROC: 0BH17EZ Insertion of Endotracheal Airway into Trachea, Via Natural or Artificial Opening (ICD-10-PCS; 2023-12-07)
PROC: 05HY33Z Insertion of Infusion Device into Upper Vein, Percutaneous Approach (ICD-10-PCS; 2023-12-07)
PROC: 03HY32Z Insertion of Monitoring Device into Upper Artery, Percutaneous Approach (ICD-10-PCS; 2023-12-08)
PROC: B34HZZZ Ultrasonography of Right Upper Extremity Arteries (ICD-10-PCS; 2023-12-08)
PROC: 05HY33Z Insertion of Infusion Device into Upper Vein, Percutaneous Approach (ICD-10-PCS; 2023-12-08)
PROC: B544ZZA Ultrasonography of Left Jugular Veins, Guidance (ICD-10-PCS; 2023-12-08)
PROC: 5A1D70Z Performance of Urinary Filtration, Intermittent, Less than 6 Hours Per Day (ICD-10-PCS; 2023-12-08)
PROC: 5A1D70Z Performance of Urinary Filtration, Intermittent, Less than 6 Hours Per Day (ICD-10-PCS; 2023-12-09)
PROC: 5A1D70Z Performance of Urinary Filtration, Intermittent, Less than 6 Hours Per Day (ICD-10-PCS; 2023-12-10)
PROC: 30233N1 Transfusion of Nonautologous Red Blood Cells into Peripheral Vein, Percutaneous Approach (ICD-10-PCS; 2023-12-10)
DX: A41.9 Sepsis, unspecified organism (principal); I21.A1 Myocardial infarction type 2; J15.9 Unspecified bacterial pneumonia; J96.02 Acute respiratory failure with hypercapnia; N18.6 End stage renal disease; R65.21 Severe sepsis with septic shock; I50.33 Acute on chronic diastolic (congestive) heart failure; J96.01 Acute respiratory failure with hypoxia; R57.1 Hypovolemic shock; K92.1 Melena; Z94.0 Kidney transplant status; N17.9 Acute kidney failure, unspecified; T86.19 Other complication of kidney transplant; D84.821 Immunodeficiency due to drugs; E87.4 Mixed disorder of acid-base balance; I13.2 Hypertensive heart and chronic kidney disease with heart failure and with stage 5 chronic kidney disease, or end stage renal disease; T86.12 Kidney transplant failure; Z87.11 Personal history of peptic ulcer disease; D50.9 Iron deficiency anemia, unspecified; E87.5 Hyperkalemia; E11.22 Type 2 diabetes mellitus with diabetic chronic kidney disease; E11.65 Type 2 diabetes mellitus with hyperglycemia; E78.5 Hyperlipidemia, unspecified; H54.7 Unspecified visual loss; I25.10 Atherosclerotic heart disease of native coronary artery without angina pectoris; I27.20 Pulmonary hypertension, unspecified; N20.0 Calculus of kidney; Y83.0 Surgical operation with transplant of whole organ as the cause of abnormal reaction of the patient, or of later complication, without mention of misadventure at the time of the procedure; E66.01 Morbid (severe) obesity due to excess calories; D50.0 Iron deficiency anemia secondary to blood loss (chronic); Z79.02 Long term (current) use of antithrombotics/antiplatelets; Z79.624 Long term (current) use of inhibitors of nucleotide synthesis; Z83.3 Family history of diabetes mellitus; Z95.5 Presence of coronary angioplasty implant and graft; Z95.810 Presence of automatic (implantable) cardiac defibrillator; Z98.84 Bariatric surgery status; Z99.2 Dependence on renal dialysis; Z68.21 Body mass index [BMI] 21.0-21.9, adult
CPT/HCPCS: 31500; 36415; 36600; 70450; 71045; 73600; 73620; 74176; 76770; 80048; 80051; 80053; 80061; 80076; 80202; 81001; 82010; 82040; 82140; 82270; 82306; 82435; 82550; 82565; 82570; 82803; 82947; 82948; 83036; 83540; 83550; 83605; 83735; 83880; 83935; 84100; 84132; 84145; 84295; 84443; 84484; 84520; 85014; 85018; 85025; 85027; 85610; 85730; 86701; 86704; 86706; 86850; 86900; 86901; 86923; 87040; 87070; 87071; 87076; 87077; 87088; 87186; 87205; 87340; 87390; 87426; 87804; 90935; 93005; 93306; 94002; 94003; 94640; 94664; 96375; 99291; C1751; C9113; G0378; J0612; J0692; J0696; J1756; J1815; J1940; J2020; J2354; J2405; J3010; J3490; J7050; J7070; J7507; P9016; 3370; A4600; A9900; J3370; Q5106

== ENCOUNTER 2024-11-28 07:47 | Day surgery (SDC) | payer MEDICARE, MEDICAID ==
[2024-11-28] VITALS (10 sets, daily range): BP systolic 90–116; BP diastolic 45–67; PULSE 63–72; RESP 14–17; TEMP 97.3–97.9
[~2024-11-28] VITALS: Ht 162.6 cm; Wt 59.9 kg
[~2024-11-28 07:47] MED LIST changes: +ASPI-1443 PO; +ATOR20TA65 PO; +BUME2TAB5 PO; +CLOP75TA32 PO; +ICOS1CAP PO; +LOSA25TA41 PO; +MIDO10TA3 PO; +MYCO250C36 PO; -ROCURONIUM BROMIDE 10MG/1ML 5ML VL IV ONE; +SUCR1TAB2 PO; +TACR1CAP10 PO; +TACR1GRA PO
[2024-11-28] MEDS ORDERED: PANT40TA54 PO (10:22)
[2024-11-28] MEDS ORDERED: FERS325 PO (10:22)
[2024-11-28] MEDS ORDERED: MYCO250C7 PO (10:22)
[2024-11-28] MEDS ORDERED: MULT-1367 PO (10:22)
[2024-11-28] MEDS ORDERED: TRAM-543 PO (10:22)
[2024-11-28] MEDS: 0.9%NACL 1000ML 1,000 ML IV ONE (10:29)
[2024-11-28] MEDS ORDERED: proPOFol 10 MG/ML 20ML VIAL IV ONE (11:13)
== END 2024-11-28 12:45 | disposition home or self-care (01) ==
LOC: DAH 07:47 → SUH 07:47
PROVIDERS: ATTEND Internal Medicine Gastroenterology
DX: R12 Heartburn (principal); K29.50 Unspecified chronic gastritis without bleeding; K25.9 Gastric ulcer, unspecified as acute or chronic, without hemorrhage or perforation; I12.0 Hypertensive chronic kidney disease with stage 5 chronic kidney disease or end stage renal disease; E11.22 Type 2 diabetes mellitus with diabetic chronic kidney disease; N18.6 End stage renal disease; E78.5 Hyperlipidemia, unspecified; D50.9 Iron deficiency anemia, unspecified; Z98.84 Bariatric surgery status; Z86.0100 Personal history of colon polyps, unspecified; Z99.2 Dependence on renal dialysis; Z95.0 Presence of cardiac pacemaker; Z79.02 Long term (current) use of antithrombotics/antiplatelets; Z79.899 Other long term (current) drug therapy; Z98.890 Other specified postprocedural states
CPT/HCPCS: 82948 ×2; 43239; J7030; J2704; A4620; A4215 ×2; A4223; A4222; A4221; A4663; A4606; J3490